=== PATIENT | female | born 1940 | race Caucasian/White ===

== ENCOUNTER 2022-07-12 09:25 | Outpatient (CLI) | payer MEDICARE, SELFPAY | END 2022-07-12 09:26 | disposition home or self-care (01) | LOC: NFLDREF 07-14 02:42 | PROVIDERS: Visit Provider Nurse Practitioner Family | DX: R35.89 Other polyuria (principal); N30.90 Cystitis, unspecified without hematuria | CPT/HCPCS: 87086; 87186 ==

== ENCOUNTER 2023-05-03 13:27 | Outpatient (REF) | payer MEDICARE, SELFPAY | END 2023-05-03 13:28 | disposition home or self-care (01) | LOC: NFLDREF 13:27 | PROVIDERS: Visit Provider Physician Assistant | DX: R30.0 Dysuria (principal); N39.0 Urinary tract infection, site not specified | CPT/HCPCS: 87086; 87186 ==